=== PATIENT | male | born 1965 | race Caucasian/White ===

== ENCOUNTER 2025-04-23 00:28 | Emergency (ER) | payer OTHER, SELFPAY ==
[2025-04-23 00:41] VITALS: BP 145/99; PULSE 70; TEMP 36.7; O2SAT 100; BMI 29.5
--- NOTE | 2025-04-23 00:44 | ED_ITS ---
HPI - Animal Bite General Chief Complaint: Animal Bite Stated Complaint: DOG BITE Time Seen by Provider: 04/23/25 00:41 History of Present Illness HPI narrative: dog bite family dog right hand just [employer]. States they rescued the dog 2 months ago. Tonight dog bit his right hand when he was trying to move the dog off the couch. Denies hand weakness or numbness. His last tetanus was about one year ago. No hand weakness or numbness. He is right hand dominant Related Data Allergies Allergy/AdvReac Type Severity Reaction Status Date / Time Penicillins Allergy Mild Rash Verified 04/23/25 00:41 Review of Systems ROS Status of ROS 10 or more systems reviewed and unremark able except as noted in history and below PFSH PFSH Social History Little interest or pleasure in doing things: not at all Feeling down, depressed, or hopeless: not at all Exam Constitutional Vital Signs, click to edit/add: Last Vital Signs Temp 98.0 F 04/23/25 00:41 Pulse 70 04/23/25 00:41 Resp 18 04/23/25 00:41 BP 145/99 H 04/23/25 00:41 Pulse Ox 100 04/23/25 00:41 O2 Del Method Room Air 04/23/25 00:41 Common normals: no apparent distress, average body habitus, oriented x3, no limitations, healthy appearing, alert and well nourished [facility] Common normals: normocephalic and head/scalp atraumatic Eye Common normals: EOMs intact bilaterally and conjunctivae normal Respiratory Common normals: normal respiratory effort, no retractions and no use of accessory muscles Cardio Common normals: regular rate, regular rhythm, S1 normal heart sound and S2 normal heart sound Extremity Common normals: full ROM Other: bite wound right hand web space dorsum of hand btw 1st and 2nd metacarpals. The metacarpal bones are nontender. FROM of the hand and N/V intact Neuro Common normals: oriented x3, CN's II-XII intact bilaterally, moves all extremities and no focal motor deficits Psych Appearance: grossly normal Course Vital Signs Vital signs: Vital Signs Temperature 98.0 F 04/23/25 00:41 Pulse Rate 70 04/23/25 00:41 Respiratory Rate 18 04/23/25 00:41 Blood Pressure 145/99 H 04/23/25 00:41 Pulse Oximetry 100 04/23/25 00:41 Oxygen Delivery Method Room Air 04/23/25 00:41 Temperature 98.0 F 04/23/25 00:41 Pulse Rate 70 04/23/25 00:41 Respiratory Rate 18 04/23/25 00:41 Blood Pressure 145/99 H 04/23/25 00:41 Pulse Oximetry 100 04/23/25 00:41 Oxygen Delivery Method Room Air 04/23/25 00:41 MDM - Animal Bite MDM Narrative Medical decision making narrative: patient presents with dog bite right hand by family pet. Pet new to the family. Stray dog until 2 months ago. Patient not aware of vaccinations before the rescued the dog. has not received any since dog has been with them. lac repaired as above. Patient shots UTD. will have him monitor his dogs behavior for the next 10 days. Patient has PCN allergy. Prescribed doxycycline and clindamycin Discharge Plan Discharge Chief Complaint: Animal Bite Clinical Impression: Dog bite Patient Disposition: Home, Self-Care Print Language: Italian Instructions: Animal Bite (ED) Additional Instructions: have wound rechecked in 2-3 days and stitches removed in 10 days. Monitor dog at home for 10 days as discussed Procedures ED Procedure Instructions Procedures Procedures: right hand lac. 2.5cm flap lac. SQ tissue exposure. No obvious FB or tendon lac . 1% lido without epi. Cleaned with betadine. rinsed with saline and closed with # 5 5.0 nylon stitches
--- NOTE | 2025-04-23 00:47 | PC.NURSE ---
hand cleansed with Hibiclens and sterile water, pt tolerated well
[2025-04-23] MEDS: LIDOCAINE HCL 1% 100 MG/10 ML MDV INJ (00:57)
--- OUTSIDE RECORDS SUMMARY | 2025-04-23 01:28 | XMS_ITS | Clinical Summary ---
Author Organization [facility] Address [address] [place] [address] Care Team Providers Care Coil Taper Name Role Phone Rio Lyn DO Primary Care Provider [phone] Allergies Active AllergyReactionsCriticalityNoted DateCommentsPenicillin GRashLow 09/26/2023 Medications MedicationSigDispense QuantityRefillsLast FilledStart DateEnd DateStatus Fluticasone Furoate-Vilanterol (Breo Ellipta) 50-25 MCG/ACT aerosol powder InhaleActive metroNIDAZOLE (Metrogel) 1 % gel Twice daily09/25/2023ctive naproxen sodium (Aleve) 220 MG tablet Take 220 mg by mouth every 12 (twelve) hoursActive esomeprazole (NexIUM) [address] capsule Take 40 mg by mouth in the morning. Take before meals.07/30/2004Active predniSONE (Deltasone) 5 MG tablet Take 5 mg by mouth Daily09/25/2023ctive Social History Tobacco UseTypesPacks/DayYears UsedDateSmoking Tobacco: NeverSmokeless Tobacco: Never Tobacco Cessation:Counseling Given: Not Answered Alcohol UseStandard Drinks/WeekCommentsNot Currently0 (1 standard drink = 0.6 oz pure alcohol)Sex and Gender InformationValueDate RecordedSex Assigned at Male10/30/2023 3:09 PM EDTLegal TstVuuf6007/12/2022 7:01 PM EDTGender IdentityMale 10/30/2023 3:09 PM EDTSexual OrientationNot on file Last Filed Vital Signs Vital SignReadingTime TakenCommentsBlood Ydeujvzo325/8408 1:20 PM EDT Mitgf9171 1:20 PM EDTTemperature--Respiratory Rate--Oxygen Vrazktjtpx30% 12/12/2023 1:20 PM EDTInhaled Oxygen Concentration--Slnjrn23.1 kg (203 lb) 12/12/2023 1:20 PM MRRAoctjz482.3 cm (5' 9 )12/12/2023 1:20 PM EDTBody Mass Index29.98012/12/2023 1:20 PM EDT Plan of Treatment Not on file [place] [facility] [place] [facility] [id number] [place] [id number] Care Teams Team MemberRelationshipSpecialtyStart DateEnd Date Rio Lyn DO PCP - GeneralFaazly Medicine10/31/23
[2025-04-23] MEDS: DOXYCYCLINE MONOHYDRATE 100 MG CAPSULE PO (01:40)
[2025-04-23] MEDS: CLINDAMYCIN HCL 150 MG CAPSULE 300 MG PO (01:40)
== END 2025-04-23 02:01 | disposition home or self-care (01) ==
PROVIDERS: Emergency Provider Internal Medicine; PCP Family Medicine
DX: S61.451A Open bite of right hand, initial encounter (principal); W54.0XXA Bitten by dog, initial encounter
CPT/HCPCS: 99284